=== PATIENT | female | born 1990 | race Caucasian/White ===

== ENCOUNTER 2017-01-03 18:37 | Inpatient (IN) | payer MEDICAID ==
[~2017-01-03] VITALS: Ht 154.9 cm; Wt 61.5 kg
[2017-01-03 18:50] VITALS: Ht 154.9 cm; Wt 61.5 kg
[2017-01-03] MEDS ORDERED: FER325 PO (18:50)
[2017-01-03] MEDS ORDERED: PRENAT PO (18:50)
[2017-01-03 18:51] VITALS: BP 111/64; PULSE 71; RESP 18
--- NOTE | 2017-01-03 19:01 | TRIAGE ---
OB Triage Datetime Report Generated by CPN: 01/03/2017 19:01 Datetime: 01/03/2017 18:53 Vaginal Exam Dilatation (cms): 3.0 Effacement (%): 80 Station: -2 Exam By: chaparro Vaginal Bleeding: Normal Show Cervix, Consistency: Soft Cervix, Position: Midposition Datetime: 01/03/2017 18:47 Assessment Type: Triage Maternal Assessment Level of Consciousness: Fully Conscious DTR's/Clonus: DTRs 2+; No Clonus Headache: Denies Blurred Vision: No Respiratory Effort: Unlabored; Regular Rhythm; Equal Expansion Breath Sounds, Left: Clear and Equal Breath Sounds, Right: Clear and Equal Nausea/Vomiting: Denies RUQ Epigastric Pain: Denies Lower Extremities Edema: None Degree: None Upper Extremities Edema: None Degree: None Facial Edema: None Fall Risk Assessment History of Falling: (0) No Secondary Diagnosis: (0) No Ambulatory Aid: (0) Bedrest/Nurse Assist IV Therapy: (0) No Gait: (0) Normal/Bedrest/Immobile Mental Status: (0) Oriented to Own Ability Fall Score: 0 Fall Risk Score Definition: No Risk: No action required Datetime: 01/03/2017 18:45 Time of Arrival: 01/03/2017 18:26 EGA: 41.0 Arrived By: Wheelchair Arrived From: Home Chief Complaint: PT HERE C/O UC'S Movement: Present Contractions: Irregular Rupture of Membranes: Denies Vaginal Bleeding: Scant Vaginal Discharge: Denies Recent Sexual Intercouse: Denies Abdominal Trauma: Not Applicable Patient Complaints: Contractions; Cramping; Back Pain Time Provider Notified: 01/03/2017 18:57 Provider Notified: ARDALAN Initial Plan: EFM, SVE Labor Evaluation Monitor Mode: External Heart Rate Monitor Mode: External US
[2017-01-03] MEDS ORDERED: LIDOCAINE 1% (MPF) 30 ML INJ INJ PRN (19:30)
[2017-01-03] MEDS ORDERED: IBUPROFEN 600 MG TAB PO PRN (19:30)
[2017-01-03] MEDS ORDERED: MISOPROSTOL 200 MCG TAB PR PRN (19:30)
[2017-01-03] MEDS ORDERED: CARBOPROST 250 MCG INJ IM PRN (19:30)
[2017-01-03] MEDS ORDERED: LACTATED RINGER'S 1,000 ML IV PRN (19:30)
[2017-01-03] MEDS ORDERED: AMPICILLIN 2 GM/NS (PMX) 100 ML IV ONE (19:30)
[2017-01-03] MEDS ORDERED: OXYTOCIN 30 UNITS/LR 500 ML IV SCH (19:30)
[2017-01-03] MEDS ORDERED: OXYTOCIN 30 UNITS/LR 500 ML IV PRN (19:30)
[2017-01-03] MEDS ORDERED: METHYLERGONOVINE 0.2 MG INJ IM PRN (19:30)
[2017-01-03] MEDS: LACTATED RINGER'S 1,000 ML IV SCH (19:50)
[2017-01-03 20:13] LABS: BASOPHILS % 0.3 % (0.0-2.0); EOSINOPHILS # 0.1 10^3/ul (0.0-0.5); EOSINOPHILS % 1.1 % (0.0-7.0); HEMOGLOBIN 12.2 g/dl (12.0-16.0); LYMPHOCYTES # 2.2 10^3/ul (0.8-2.9); LYMPHOCYTES % 17.5 % (15.0-51.0); MEAN CORPUSCULAR HEMOGLOBIN 29.8 pg (29.0-33.0); MEAN CORPUSCULAR HGB CONC 34.9 g/dl (32.0-37.0); MEAN CORPUSCULAR VOLUME 85.4 fl (82.0-101.0); MEAN PLATELET VOLUME 9.9 fl (7.4-10.4); MONOCYTES % 8.1 % (0.0-11.0); NEUTROPHILS % 72.2 % (39.0-77.0); PLATELET COUNT 274 10^3/UL (140-415); RED CELL DISTRIBUTION WIDTH 12.7 % (11.5-14.5); WHITE BLOOD COUNT 12.5 10^3/ul (4.8-10.8)
[2017-01-03 20:17] LABS: ADD UMIC YES; UR ASCORBIC ACID NEGATIVE (NEGATIVE); UR BACTERIA FEW /HPF (NONE SEEN); UR BILIRUBIN (Dip) NEGATIVE (NEGATIVE); UR BLOOD (Dip) 1+ mg/dL (NEGATIVE); UR CLARITY SLIGHTLY CLOUDY (CLEAR); UR COLOR YELLOW (YELLOW); UR GLUCOSE (Dip) NEGATIVE (NEGATIVE); UR KETONES (Dip) NEGATIVE (NEGATIVE); UR LEUKOCYTE ESTERASE (Dip) TRACE Leu/ul (NEGATIVE); UR MUCUS FEW /HPF (NONE SEEN); UR NITRITE (Dip) NEGATIVE (NEGATIVE); UR RBC 1 /HPF (0-5); UR SPECIFIC GRAVITY (Dip) 1.026 (1.003-1.030); UR SQUAMOUS EPITHELIAL CELL FEW /HPF (FEW); UR TOTAL PROTEIN (Dip) NEGATIVE (NEGATIVE); UR UROBILINOGEN (Dip) NEGATIVE (NEGATIVE)
[2017-01-03] MEDS: BUTORPHANOL 2 MG INJ IV PRN (20:17)
[2017-01-03 20:28] LABS: INR 0.91; PROTIME 12.3 Sec (12.2-14.2)
[2017-01-03 20:41] LABS: BARBITURATES Negative (NEGATIVE); BENZODIAZEPINES Negative (NEGATIVE); CANNABINOIDS Negative (NEGATIVE); COCAINE Negative (NEGATIVE); OPIATES Negative (NEGATIVE)
[2017-01-03 22:02] LABS: PARTIAL THROMBOPLASTIN TIME 26.2 Sec (25.0-35.0)
[2017-01-03] MEDS ORDERED: AMPICILLIN 1 GM/NS (PMX) 50 ML IV SCH (23:30)
[2017-01-04] MEDS: BUTORPHANOL 2 MG INJ IV PRN (02:48)
[2017-01-04] MEDS: LACTATED RINGER'S 1,000 ML IV SCH (04:50)
[2017-01-04] MEDS ORDERED: FENTAnyl 2MCG/ML-ROPIV 0.2% 100 ML ONE (07:32)
[2017-01-04] MEDS ORDERED: NALOXONE (0.4 MG/ML) INJ IV PRN (08:00)
[2017-01-04] MEDS ORDERED: FENTAnyl 2MCG/ML-ROPIV 0.2% 100 ML BAG EPI SCH (08:00)
[2017-01-04] MEDS: OXYTOCIN 30 UNITS/LR 500 ML IV SCH ×4 (13:51→20:18)
--- NOTE | 2017-01-04 14:01 | LDN ---
Date/Time of Note Date/Time of Note DATE: 01/04/17 TIME: 13:56 Delivery Summary Normal spontaneous vaginal delivery of a baby girl from OA position with umbilical cord around the baby's ankle , nasal oropharyngeal suction was performed 7 and 9 placenta delivered spontaneously expulsion inspected complete estimated blood loss 200 mL patient sustained first-degree perineal laceration repaired with 3-0 Vicryl and 4-0 chromic catgut Weeks of Gestation 41 week and 1 day Placenta Delivered: Spontaneously Meconium: Light Episiotomy: No Perineal laceration: 1 Laceration repair: First-degree perineal laceration repaired with 3-0 Vicryl and 4-0 chromic catgut Anesthesia type: Epidural Estimated blood loss: 200 Sponge & Needle done & correct: Yes All needle counts correct: Yes Any foreign bodies felt in the: No Problems: Infant Delivery Information Sex Infant Sex: female Apgars 1 Minute: 7 5 Minute: 9 Suctioning Nose & mouth suctioned at kezia: Yes Delee suction performed: No Umbilical Cord Umbilical cord with: 3 Vessels Cord presentations: nuchal cord Cord Blood was obtained: Yes ZAKIA CORNEJO MD Jan 04, 2017 14:01
--- NOTE | 2017-01-04 14:07 | HP ---
Date/Time of Note Date/Time of Note DATE: 01/04/17 TIME: 14:01 OB - History Hx of Present Free Text/Dictation 26 years old female 2 para 0 AB 1 EDC January 03, 2017 admitted to the hospital in late pelvic examination on admission cervix 4 cm dilated 80% effaced vertex at -2 station contractions 5-7 minutes required augmentation will be followed for expecting management for vaginal delivery Chief Complaint: Labor contraction Estimated Due Date: Dec 27, 2016 : 2 Para: 0 Spontaneous : 1 Care: Limited Care Ultrasounds: Normal mid trimester US Obstetrical Complications: None Medical Complications: None Past Family/Social History * Past Medical, Surgical, Family and Obstetric Histories reviewed from chart. Rubella: immune RPR/VDRL: Negative GBS Status: Negative HBsAG: Negative OB Admission Exam Vital Signs Vital Signs Vital Signs Date Time Temp Pulse Resp B/P Pulse Ox O2 Delivery O2 Flow Rate FiO2 01/03/17 18:51 98.4 71 18 111/64 97 Room Air Physical Exam HEENT: WNL Heart: Rhythm Normal Lungs: Clear, Equal Abdomen: WNL Extremities: Normal Reflexes: Normal Cervical Dilatation: 4cm Effacement: 75% Station: -1 Amniotic Fluid: Thin Meconium Heart Rate: 130's Accelerations: Accelerations Present Decelerations: Variable Decelerations Varibility: Moderate Contractions on Admission: 6-10 Minutes Apart Intensity: Moderate Last 72 hours Lab Results CBC & BMP 01/03/17 19:45 OB Assessment/Plan Reason for admission: other (26 years old female 2 para 0 AB 1 EDC December 27, 2016 admitted in early labor required labor augmentation admission cervix 4 cm dilated 80% effaced vertex at -2 station) Induction Method: other (Labor augmentation) ZAKIA CORNEJO MD Jan 04, 2017 14:07
[2017-01-04] MEDS ORDERED: WITCH HAZEL/GLYCERIN PAD PR PRN (15:30)
[2017-01-04] MEDS ORDERED: HYDROCODONE/APAP (5/325) TAB PO PRN (15:30)
[2017-01-04] MEDS ORDERED: ACETAMINOPHEN 325 MG TAB PO PRN (15:30)
[2017-01-04] MEDS ORDERED: LANOLIN 7 GM TUBE TOP PRN (15:30)
[2017-01-04] MEDS ORDERED: BENZOCAINE 20% 56 ML SPRAY TOP PRN (15:30)
[2017-01-04] MEDS ORDERED: DIBUCAINE 1% 30 GM OINT PR PRN (15:30)
[2017-01-04] MEDS ORDERED: OXYCODONE/ASPIRIN (4.88/325) TAB PO PRN ×2 (15:30)
[2017-01-04] MEDS ORDERED: ONDANSETRON 4 MG INJ IV PRN (15:30)
[2017-01-04 15:50] VITALS: BP 110/61; PULSE 83; RESP 16
[2017-01-04] MEDS: IBUPROFEN 600 MG TAB PO SCH (18:39)
[2017-01-04 19:30] VITALS: BP 118/69; PULSE 81; RESP 19
[2017-01-04] MEDS: HYDROCODONE/APAP (5/325) TAB PO PRN (20:17)
[2017-01-05 00:10] VITALS: BP 109/67; PULSE 83; RESP 18
[2017-01-05] MEDS: IBUPROFEN 600 MG TAB PO SCH ×4 (00:21→17:34)
[2017-01-05 04:15] VITALS: BP 105/68; PULSE 79; RESP 19
[2017-01-05 08:00] VITALS: BP 101/72; PULSE 74; RESP 18
[2017-01-05 09:06] LABS: BASOPHILS % 0.2 % (0.0-2.0); EOSINOPHILS # 0.1 10^3/ul (0.0-0.5); EOSINOPHILS % 0.9 % (0.0-7.0); HEMATOCRIT 30.1 % (37.0-47.0); LYMPHOCYTES # 2.1 10^3/ul (0.8-2.9); LYMPHOCYTES % 15.4 % (15.0-51.0); MEAN CORPUSCULAR HEMOGLOBIN 29.9 pg (29.0-33.0); MEAN CORPUSCULAR HGB CONC 33.2 g/dl (32.0-37.0); MEAN CORPUSCULAR VOLUME 89.9 fl (82.0-101.0); MONOCYTES % 7.3 % (0.0-11.0); NEUTROPHILS % 75.5 % (39.0-77.0); PLATELET COUNT 220 10^3/UL (140-415); RED BLOOD COUNT 3.35 10^6/ul (4.20-5.40); RED CELL DISTRIBUTION WIDTH 13.2 % (11.5-14.5); WHITE BLOOD COUNT 13.6 10^3/ul (4.8-10.8)
[2017-01-05] MEDS: SENNA/DOCUSATE NA (8.6MG/50MG) TAB PO SCH ×2 (09:08→21:37)
--- NOTE | 2017-01-05 09:54 | PN ---
Date/Time of Note Date/Time of Note DATE: 01/05/17 TIME: 09:53 OB Subjective Subjective Subjective Post normal vaginal delivery day 1 Afebrile Vital signs are stable Abdomen soft Uterus firm Lochia normal Extremity normal Laboratory Tests Test 01/05/17 08:41 White Blood Count 13.610^3/ul Red Blood Count 3.3510^6/ul Hemoglobin 10.0g/dl Hematocrit 30.1% Mean Corpuscular Volume 89.9fl Mean Corpuscular Hemoglobin 29.9pg Mean Corpuscular Hemoglobin Concent 33.2g/dl Red Cell Distribution Width 13.2% Platelet Count 09804^3/UL Mean Platelet Volume 10.0fl Neutrophils % 75.5% Lymphocytes % 15.4% Monocytes % 7.3% Eosinophils % 0.9% Basophils % 0.2% Nucleated Red Blood Cells % 0.0/100WBC Neutrophils # (Manual) 10.310^3/ul Lymphocytes # 2.110^3/ul Monocytes # 1.010^3/ul Eosinophils # 0.110^3/ul Basophils # 0.010^3/ul Nucleated Red Blood Cells # 0.010^3/ul Current Medications Medications (Trade) Dose Ordered Sig/Donna Route PRN Reason Start Time Stop Time Status Last Admin Dose Admin Lactated Ringer's 1,000 ml @ 125 mls/hr Q8H IV 01/03/17 19:27 01/04/17 15:25 DC 01/04/17 04:50 Ampicillin 100 ml @ 100 mls/hr ONCE ONCE IV 01/03/17 19:30 01/03/17 20:29 DC 01/03/17 19:50 Ampicillin (Ampicillin 1 Gm/ NS (Pmx)) 50 ml @ 100 mls/hr Q4H IV 01/03/17 23:30 01/04/17 04:15 DC Butorphanol Tartrate (Stadol) 2 mg Q2H PRN IV PAIN 01/03/17 19:30 01/04/17 15:26 DC 01/04/17 02:48 Lidocaine 30 ml 30 ml ONCE PRN INJ EPISIOTOMY/TEARING 01/03/17 19:30 01/04/17 15:26 DC Oxytocin/Lactated Ringer's 500 ml @ 125 mls/hr ONCE -MAY REPEAT X1 IV 01/03/17 19:30 01/04/17 15:26 DC 01/04/17 14:20 Oxytocin/Lactated Ringer's 500 ml @ 125 mls/hr ONCE IV 01/03/17 19:30 01/04/17 15:26 DC Ibuprofen 600 mg 600 mg ONCE PRN PO Mild Pain (Pain Score 1-3) 01/03/17 19:30 01/04/17 15:26 DC Lactated Ringer's 1,000 ml @ 2,000 mls/hr Q30M PRN IV PRE-EPIDURAL BOLUS 01/03/17 19:30 01/04/17 15:26 DC 01/04/17 08:33 Oxytocin/Lactated Ringer's 500 ml @ 0 mls/hr ONCE PRN IV For Hemorrhage Management 01/03/17 19:30 01/04/17 15:26 DC Methylergonovine Maleate (Methergine) 0.2 mg ONCE PRN IM VAGINAL BLEEDING 01/03/17 19:30 01/04/17 15:26 DC Carboprost Tromethamine (Hemabate) 250 mcg ONCE PRN IM VAGINAL BLEEDING 01/03/17 19:30 01/04/17 15:26 DC Misoprostol 1000 mcg 1,000 mcg ONCE PRN SD VAGINAL BLEEDING 01/03/17 19:30 01/04/17 15:26 DC Fentanyl/ Ropivacaine 100 ml @ ud STK-MED ONCE .ROUTE 01/04/17 07:32 01/04/17 07:33 DC Naloxone HCl (Narcan) 0.2 mg Q2M PRN IV FOR RESP RATE 8 OR LESS 01/04/17 08:00 01/04/17 15:26 DC Fentanyl/ Ropivacaine 100 ml 100 ml EPIDURAL (PCEA) EPI 01/04/17 08:00 01/04/17 15:26 DC Oxytocin/Lactated Ringer's 500 ml @ 125 mls/hr Q4H IV 01/04/17 15:18 01/04/17 23:17 DC Ibuprofen (Motrin) 600 mg Q6 PO 01/04/17 18:00 01/05/17 05:33 Acetaminophen (Tylenol Tab) 650 mg Q4H PRN PO PAIN LEVEL 1-5 01/04/17 15:30 Acetaminophen/ Hydrocodone Bitart ([place] (5/325)) 1 tab Q4H PRN PO PAIN LEVEL 1-5 01/04/17 15:30 Acetaminophen/ Hydrocodone Bitart ([place] (5/325)) 2 tab Q4H PRN PO PAIN LEVEL 6-10 01/04/17 15:30 01/04/17 20:17 Oxycodone/Aspirin (Percodan) 1 tab Q3H PRN PO PAIN LEVEL 1-5 01/04/17 15:30 Oxycodone/Aspirin (Percodan) 2 tab Q3H PRN PO PAIN LEVEL 6-10 01/04/17 15:30 01/04/17 16:48 Ondansetron HCl (Zofran Inj) 4 mg Q6H PRN IV NAUSEA AND/OR VOMITING 01/04/17 15:30 Senna/Docusate Sodium (Senokot-S) 1 tab BID PO 01/05/17 09:00 01/05/17 09:08 Witch Claritza/ Glycerin (Tucks Pads) 1 pad BEDSIDE MEDICATION PRN SD HEMORRHOID/EPISIOTMY PAIN 01/04/17 15:30 01/04/17 16:50 Benzocaine (Dermoplast [place]) 1 spray BEDSIDE MEDICATION PRN TOP HEMORRHOID/EPISIOTMY PAIN 01/04/17 15:30 01/04/17 16:50 Dibucaine (Nupercainal) 1 applic BEDSIDE MEDICATION PRN SD HEMORRHOID/EPISIOTMY PAIN 01/04/17 15:30 Lanolin ([id number]) 1 applic BEDSIDE MEDICATION PRN TOP BEDSIDE FOR NELI TO NIPPLES 01/04/17 15:30 01/04/17 16:50 Measles/Mumps/ Rubella Vaccine Live (Mmr Ii Vaccine) 0.5 ml ONCE ONCE SC* 01/06/17 09:00 01/06/17 09:01 ZAKIA CORNEJO MD Jan 05, 2017 09:54
[2017-01-05 12:38] LABS: RUBELLA ANTIBODY - IGG 2.14 index
[2017-01-05 16:10] VITALS: BP 96/86; PULSE 19; RESP 20
[2017-01-05 20:00] VITALS: BP 114/68; RESP 17
[2017-01-05] MEDS: HYDROCODONE/APAP (5/325) TAB PO PRN (21:38)
[2017-01-06 04:10] VITALS: BP 116/63; PULSE 66; RESP 17
[2017-01-06] MEDS: IBUPROFEN 600 MG TAB PO SCH ×5 (06:50→15:58)
[2017-01-06 07:30] VITALS: BP 103/59; PULSE 68; RESP 18
[2017-01-06] MEDS ORDERED: MEASLES,MUMPS,RUBELLA VACCINE INJ SC* ONE (09:00)
[2017-01-06] MEDS: SENNA/DOCUSATE NA (8.6MG/50MG) TAB PO SCH (09:27)
--- NOTE | 2017-01-06 11:48 | PD.PPDC ---
[facility] [employer] Discharge Instruction Condition Patient Condition: Good Diet Diet: Resume Regular Diet Activity/Restrictions Activity: Normal Activity May Shower Restrictions: No Exercising No Lifting No Driving No Sexual Activity Nothing in the Vagina No Ransom No Tampons, douche Follow-up Follow-up with Physician: 2, Week/Weeks Provider Information: [facility] Return to clinic for [employer] COORDINATOR Instructions: Fever greater than 101 Chills Worsening abdominal pain Excessive Vaginal Bleeding More than 2 pads per hour Unable to tolerate diet OB Instructions: Breast Tenderness Depression Blurried Vision Headache ZAKIA CORNEJO MD Jan 06, 2017 11:48
--- NOTE | 2017-01-06 11:52 | DS ---
Date/Time of Note Date/Time of Note DATE: 01/06/17 TIME: 11:49 Discharge Summary Admission/Discharge Info Admit Date/Time Jan 03, 2017 at 18:57 Discharge Date/Time JAN 06 AT 1200 Discharge Diagnosis POST DAY 2 Patient Condition: Good Procedures NORMAL VAG DELIVERY Hx of Present Illness TERM Hospital Course SATISFACTORY Home Meds Reported Medications Ferrous Sulfate* (Ferrous Sulfate*) 325 Mg Tabec, 325 MG PO DAILY, TAB 01/03/17 Multivit/Min/Fol Ac/Iron/Pren* ( S*) 1 Tab Tab, 1 TAB PO DAILY, TAB 01/03/17 Follow-up Plan [facility] 2 WEEKS Primary Care Provider Care Physician No Primary Time spent on discharge: < 30 minutes ZAKIA CORNEJO MD Jan 06, 2017 11:52
[2017-01-06 15:58] VITALS: BP 107/56; PULSE 60; RESP 16
== END 2017-01-06 16:15 | disposition home or self-care (01) | DRG 775 ==
LOC: L-D 18:37 → OBT 18:37 → L-D 18:57 → PP1 01-04 15:43
PROVIDERS: ADMIT Obstetrics & Gynecology; ATTEND Obstetrics & Gynecology
PROC: 10E0XZZ Delivery of Products of Conception, External Approach (ICD-10-PCS; principal; 2017-01-04)
PROC: 0HQ9XZZ Repair Perineum Skin, External Approach (ICD-10-PCS; 2017-01-04)
PROC: 3E033VJ Introduction of Other Hormone into Peripheral Vein, Percutaneous Approach (ICD-10-PCS; 2017-01-04)
DX: O48.0 Post-term pregnancy (principal); O69.81X0 Labor and delivery complicated by cord around neck, without compression, not applicable or unspecified; Z3A.41 41 weeks gestation of pregnancy; O70.0 First degree perineal laceration during delivery; Z37.0 Single live birth
CPT/HCPCS: 62319; 80307; 81001; 85025; 85610; 85730; 86592; 86703; 86762; 86885; 86900; 86901; 87340; 99464; G0463; J0290; J0595; J2590; J3010; J7120